=== PATIENT | male | born 1945 | race Caucasian/White ===

== ENCOUNTER 2016-10-17 10:10 | Emergency (ER) | payer MEDICARE, OTHER ==
[2016-10-17 10:23] VITALS: BP 169/86
--- NOTE | 2016-10-17 10:54 | EDM.PDOC ---
ED HPI Trauma - General Chief Complaint: Lower Extremity Injury/Pain Stated Complaint: POSS INFECTION L LEG Time Seen by Provider: 10/17/16 10:40 Source: Reports: Patient History Limitations: Reports: No limitations - History of Present Illness INITIAL COMMENTS - FREE TEXT/NARRATIVE: 71-year-old male with Type 2 diabetes mellitus --controlled with Metformin- presents to the ED with a swollen painful red left second toe. He's had problems with this toe for the last 6 weeks or so. Has seen podiatry and had debridement of the toe( plantar surface tip ulcer) about 3 weeks ago. The toe started to become more red and swollen over the last 3 days. He has no systemic signs of illness such as fever chills nausea vomiting. 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 Between that and the diabetes this left him with the chronic painful condition of the great toe and left second toe where at times it feels like a hemorrhage being commented on the toe. Pain is neurogenic in origin. Usually easily controlled by Tramadol as needed. At present he is having only mild discomfort in the toe but the entire dorsal toe was red and swollen. Symptom Onset Date: 10/15/16 Occurred Where: other (No injury known. Developed a ulcer on the tip of the plantar surface of the toe greater than 6 weeks ago which required debridement by concrete float maker. This area is a healing in fairly well.) Method of Injury: other (Ulcer to the plantar surface of the toe because he can' t feel anything until postop.) Severity: moderate Pain/Injury Location: Reports: lower extremity, left (Left second toe.) Associated Symptoms: Reports: no other symptoms, trouble walking. Denies: abdominal pain, chest pain, confusion, dizziness, lightheadedness, muscle spasms , nausea/vomiting, neck pain, ringing in ears, seizures, slurred speech, vision changes, other Allergies/ADRs: Allergies No Known Allergies Allergy (Verified 08/02/16 15:33) Home Medications: Ambulatory Orders Aspirin 1 tab PO DAILY 08/02/16 [Confirmed 10/17/16] Losartan [Cozaar] 100 mg PO BID 08/02/16 [Confirmed 10/17/16] Doxycycline [Vibramycin] 100 mg PO Q12HR #30 cap 10/17/16 Levothyroxine [Synthroid] 50 mcg PO DAILY 10/17/16 [Confirmed 10/17/16] Meloxicam 15 mg PO DAILY 10/17/16 [Confirmed 10/17/16] atorvaSTATin [Lipitor] 10 mg PO DAILY 10/17/16 [Confirmed 10/17/16] metFORMIN HCl [Glucophage XR] 750 mg PO DAILY 10/17/16 [Confirmed 10/17/16] traMADol [Ultram] 50 mg PO Q6H #30 tablet 10/17/16 Past Medical History HEENT History: Reports: Other (see below) Other HEENT History: wears glasses Cardiovascular History: Reports: Bypass (Veins were harvested from the greater saphenous vein left leg which left him with common peroneal nerve injury.), High cholesterol, Hypertension Respiratory History: Reports: Other (see below) Other Respiratory History: hematoma Neurological History: Reports: Neuropathy, diabetic Endocrine/Metabolic History: Reports: Diabetes, type II, Hypothyroidism - Past Surgical History Musculoskeletal Surgical History: Reports: Other (see below) Other Musculoskeletal Surgeries/Procedures:: bunion surgery, concrete float maker with left toe. Social & Family History - Family History Family Medical History: Noncontributory - Tobacco Use Smoking Status *Q: Unknown Ever Smoked - Caffeine Use Caffeine Use: Reports: None - Recreational Drug Use Recreational Drug Use: No - Living Situation & Occupation Occupation: employed Review of Systems - Review of Systems Review Of Systems: See Below Constitutional: Denies: chills, diaphoresis, fever, weakness, other Eyes: Reports: no symptoms Ears: Reports: no symptoms Nose: Reports: no symptoms Mouth/Throat: Reports: no symptoms Respiratory: Reports: No Symptoms Cardiovascular: Reports: edema (His edema left leg at times. Usually running around the top of the sock.), lightheadedness. Denies: chest pain GI/Abdominal: Reports: No symptoms Musculoskeletal: Reports: leg pain (Usually involving the left second and first toes. Neuropathic pain syndrome on intermittent basis. It's daily however.) Skin: Reports: erythema (Left second toe) Neurological: Reports: Difficulty Walking, Other Psychiatric: Reports: no symptoms Trauma Exam - Physical Exam Exam: See Below Exam Limited By: No limitations General Appearance: Reports: alert, WD/WN, anxious, mild distress Extremities: Reports: other (Examination was limited essentially to the left leg and foot. He has evidence of greater saphenous vein harvesting for bypass surgery in the left leg. He has slight erythema on the dorsal anterior ankle and distal tib-fib is not warm to palpation. He has trace edema of the ankle. Left second toe is severely erythematous and warm to palpation on the dorsal aspect. The volar aspect it does not show any signs of infection. No open wounds at this time. It appears to be healing wound on the medial aspect of the third toe over the proximal phalanx.). Denies: normal range of motion (He has limited movement in the second toe. Good movement of the great toe and third toe.) Neurologic: Reports: sensory deficit (Has no sensation in his left second toe.) Skin: Reports: Other (Erythema and swelling of the left second toe IE cellulitis.) - [place] Coma Score Best Eye Response (Arsh): (4) open spontaneously Best Verbal Response (Arsh): (5) oriented Best Motor Response (Arsh): (6) obeys commands Arsh Total: 15 Course - Vital Signs Last Recorded V/S: Last Vital Signs Temp 36.9 C 10/17/16 10:16 Pulse 65 10/17/16 10:16 Resp 18 10/17/16 10:16 BP 169/86 H 10/17/16 10:16 Pulse Ox 97 10/17/16 10:16 - Orders/Labs/Meds Orders: Active Orders 24 hr Category Date Time Status Peripheral IV Care [RC] . DIRECTED Care 10/17/16 10:58 Active Peripheral IV Insertion Adult [OM.PC] Stat Oth 10/17/16 10:57 Ordered Labs: Laboratory Tests 10/17/16 10/17/16 10/17/16 Range/Units 11:15 11:15 11:15 WBC 9.01 (4.23-9.07) K/mm3 RBC 4.43 L (4.63-6.08) M/mm3 Hgb 12.9 L (13.7-17.5) gm/L Hct 37.4 L (40.1-51.0) % MCV 84.4 (79.0-92.2) fl MCH 29.1 (25.7-32.2) pg MCHC 34.5 (32.2-35.5) g/dl RDW Std Deviation 37.8 (35.1-43.9) fL Plt Count 248 (163-337) K/mm3 MPV 11.7 (9.4-12.3) fl Neutrophils % (Manual) 74 H (40-60) % Band Neutrophils % 7 (0-10) % Lymphocytes % (Manual) 13 L (20-40) % Atypical Lymphs % 0 % Monocytes % (Manual) 3 (2-10) % Eosinophils % (Manual) 2 (0.8-7.0) % Basophils % (Manual) 1 (0.2-1.2) Platelet Estimate Adequate RBC Morph Comment Normal ESR 40 H (0-15) mm/hr C-Reactive Protein 4.4 H* (<1.0) mg/dL Meds: Medications Discontinued Medications Generic Name Dose Route Start Last Admin Trade Name Freq PRN Reason Stop Dose Admin Ceftriaxone Sodium 2 gm 10/17/16 11:00 10/17/16 11:05 Rocephin IVPUSH Not Given Q24H [place] Ceftriaxone Sodium 2 gm/ 100 mls @ 200 mls/hr 10/17/16 11:05 10/17/16 11:20 Sodium Chloride IV 10/17/16 11:34 200 mls/hr ONETIME ONE Administration Sodium Chloride 10 ml 10/17/16 10:57 10/17/16 11:15 Saline Flush FLUSH 10 ml ASDIRECTED PRN Administration Keep Vein Open - Radiology Interpretation Free Text/Narrative:: 71-year-old male presents the ED due to the swelling erythematous left second toe. Patient is a type II diabetic and controlled with metformin. He had injury to the common peroneal nerve left leg when his greater saphenous vein was harvested for bypass surgery. 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 He gets pains which is primarily described as sudden and almost like a hammer hit you in the toe. He developed a ulcer on the plantar tip of the second toe about 6 weeks ago which was debrided by podiatry. It is healing. However he has developed a secondary infection on the dorsal aspect of the toe without an obvious source for this. The toe is insensate. Plan sedimentation rate CRP and CBC to be done. We'll give 2 g of Rocephin intravenously while in the ED. X-ray of the toe to be done to see if there is any evidence of osteomyelitis. - Re-Assessments/Exams Free Text/Narrative Re-Assessment/Exam: 10/17/16 12:13: Patient has completed his 2 g of Rocephin intravenously. We'll discharge him on doxycycline 100 mg twice a day for the next 14 days. Dissection take 2 tablets today in case there is MRSA infection in the toe. X- ray of the toe did not reveal any signs of osteomyelitis. Lab work revealed a elevated CRP at 4.4 but a normal white count and differential. I also wrote a prescription for tramadol 50 mg tablets x30 one tablet every 6-8 hours as needed for pain relief. Departure - Departure Time of Disposition: 12:26 Disposition: Home, Self-Care 01 Condition: fair Clinical Impression: Cellulitis of toe, left, Neuropathic pain of left foot Prescriptions: Doxycycline [Vibramycin] 100 mg PO Q12HR #30 cap traMADol [Ultram] 50 mg PO Q6H #30 tablet Instructions: Cellulitis, Adult, [id number] Referrals: She Kim DO [Primary Care Provider] - Forms: ED Department Discharge Additional Instructions: Evaluation in the emergency department today in regards to development of infection under the skin of the left second toe. Left second toe does not have appropriate sensation since nerve injury to the foot occurred from harvesting of the greater saphenous vein for heart bypass surgery. Recent ulceration formed on the plantar surface at the tip that has started to heal quite well. Dorsal aspect of the toe was obviously very reddened and inflamed which we call cellulitis. First dose of antibiotics were provided in the ED with Rocephin 2 g administered. Treatment as an outpatient will be doxycycline 2 tablets initially then one tablet twice daily for the next 14 days to clear up infection. She did note a marked improvement in the redness and swelling over the next 72 hours. He would need to return to the emergency room sooner if the redness seems to be traveling up her foot and into your upper leg. Other reason to return to the ED with did with the development of fever chills nausea or vomiting. Suggest followup with her concrete float maker her regular doctor in 7 days time. Who I also wrote a prescription for tramadol tablets 50 mg to be used on a as needed basis every 6-8 hours for pain relief. Of note x-ray of the left second toe did not reveal any signs of osteomyelitis. - My Orders Last 24 Hours: My Active Orders 10/17/16 10:57 Peripheral IV Insertion Adult [OM.PC] Stat 10/17/16 10:58 Peripheral IV Care [RC] . DIRECTED - Assessment/Plan Last 24 Hours: My Active Orders 10/17/16 10:57 Peripheral IV Insertion Adult [OM.PC] Stat 10/17/16 10:58 Peripheral IV Care [RC] . DIRECTED
[2016-10-17] MEDS ORDERED: Sodium Chloride 0.9% 10 ML Syringe FLUSH PRN (10:57)
[2016-10-17] MEDS ORDERED: cefTRIAXone 2 GM Vial IVPUSH SCH (11:00)
[2016-10-17] MEDS ORDERED: cefTRIAXone 2 GM in Sodium Chloride 0.9% 100 ML IV ONE (11:05)
--- NOTE | 2016-10-17 11:49 | CR ---
Left toe: Four views of the left toes were obtained. Areas of cortical thickening are seen within the second digit which are felt to be old. Vascular calcification is seen. No acute fracture is noted. On the lateral view there is destruction being seen within the distal aspect of the distal phalanx felt compatible with osteomyelitis. Impression: 1. Destructive change within the distal aspect of the distal phalanx of the second digit likely representing osteomyelitis. 2. Other incidental findings. Diagnostic code #5
== END 2016-10-17 12:35 | disposition home or self-care (01) ==
LOC: JD.ED 10:10
DX: L03.032 Cellulitis of left toe (principal); E11.40 Type 2 diabetes mellitus with diabetic neuropathy, unspecified; E78.00 Pure hypercholesterolemia, unspecified; I10 Essential (primary) hypertension; E03.9 Hypothyroidism, unspecified; Z79.82 Long term (current) use of aspirin; Z79.84 Long term (current) use of oral hypoglycemic drugs; Z79.899 Other long term (current) drug therapy
CPT/HCPCS: 36415; 73660; 85025; 85652; 86140; 96365; 99284; J0696; J7030; J7050; 99283-25

== ENCOUNTER 2016-10-19 13:59 | Inpatient (IN) | payer MEDICARE, SELFPAY ==
--- NOTE | 2016-10-19 16:08 | EDM.PDOC ---
ED HPI Trauma - General Chief Complaint: Lower Extremity Injury/Pain Stated Complaint: LT FOOT SWOLLEN AND RED Time Seen by Provider: 10/19/16 14:08 Source: Reports: Patient History Limitations: Reports: No limitations - History of Present Illness INITIAL COMMENTS - FREE TEXT/NARRATIVE: The patient presents with pain and swelling to his left 2nd toe and left foot. The patient has had trouble with this toe for about 6 weeks. He saw podiatry and had debridement and that did not help. The toe is more painful and swollen over the past few days. He was seen here 2 days ago and he was given rocephin IV and put on doxycycline. He was also given tramadol for pain. He also has erythema in his lower leg. The erythema in his toe, foot and leg has not gotten any better and he has some edema now. He denies fever, chills, nausea or vomiting. Occurred When: other (Weeks ago) Occurred Where: home Method of Injury: other (He said it started out as a blister) Severity: moderate Pain/Injury Location: Reports: lower extremity, left (2nd great toe, foot and lower leg) Consciousness: Reports: no loss of consciousness Associated Symptoms: Reports: no other symptoms Allergies/ADRs: Allergies No Known Allergies Allergy (Verified 10/19/16 14:08) Home Medications: Ambulatory Orders Aspirin 1 tab PO DAILY 08/02/16 [Confirmed 10/17/16] Losartan [Cozaar] 100 mg PO BID 08/02/16 [Confirmed 10/17/16] Doxycycline [Vibramycin] 100 mg PO Q12HR #30 cap 10/17/16 Levothyroxine [Synthroid] 50 mcg PO DAILY 10/17/16 [Confirmed 10/17/16] Meloxicam 15 mg PO DAILY 10/17/16 [Confirmed 10/17/16] atorvaSTATin [Lipitor] 10 mg PO DAILY 10/17/16 [Confirmed 10/17/16] metFORMIN HCl [Glucophage XR] 750 mg PO DAILY 10/17/16 [Confirmed 10/17/16] traMADol [Ultram] 50 mg PO Q6H #30 tablet 10/17/16 Past Medical History HEENT History: Reports: Other (see below) Other HEENT History: wears glasses Cardiovascular History: Reports: Bypass, High cholesterol, Hypertension Respiratory History: Reports: Other (see below) Other Respiratory History: hematoma Neurological History: Reports: Neuropathy, diabetic Endocrine/Metabolic History: Reports: Diabetes, type II, Hypothyroidism - Past Surgical History Musculoskeletal Surgical History: Reports: Other (see below) Other Musculoskeletal Surgeries/Procedures:: bunion surgery, 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 Social & Family History - Family History Family Medical History: Noncontributory - Tobacco Use Smoking Status *Q: Unknown Ever Smoked - Caffeine Use Caffeine Use: Reports: None - Recreational Drug Use Recreational Drug Use: No - Living Situation & Occupation Occupation: employed Review of Systems - Review of Systems Review Of Systems: See Below Constitutional: Reports: no symptoms Eyes: Reports: no symptoms Ears: Reports: no symptoms Nose: Reports: no symptoms Mouth/Throat: Reports: no symptoms Respiratory: Reports: No Symptoms Cardiovascular: Reports: no symptoms GI/Abdominal: Reports: No symptoms Genitourinary: Reports: no symptoms Musculoskeletal: Reports: other (Left 2nd toe, left foot and left distal leg pain) Trauma Exam - Physical Exam Exam: See Below Exam Limited By: No limitations General Appearance: Reports: alert, no apparent distress Head: Reports: atraumatic, normocephalic Ears: Reports: normal external exam Nose: Reports: normal inspection Respiratory Exam: Reports: no respiratory distress Extremities: Reports: other (Moderate edema and erythema of the left 2nd toe. He has numbness to that toe. He has erythema to the left foot and left lower leg.) Course - Vital Signs Last Recorded V/S: Last Vital Signs Temp 97.4 F 10/19/16 14:08 Pulse 59 L 10/19/16 14:08 Resp BP 156/79 H 10/19/16 14:08 Pulse Ox 99 10/19/16 14:08 - Orders/Labs/Meds Orders: Active Orders 24 hr Category Date Time Status Patient Status [ADT] Routine ADT 10/19/16 16:34 Active Blood Glucose Check, Bedside [RC] QIDACANDBED Care 10/19/16 16:39 Active Intake and Output [RC] QSHIFT Care 10/19/16 16:31 Active Notify Provider Consults [RC] ASDIRECTED Care 10/19/16 16:37 Active Oxygen Therapy [RC] PRN Care 10/19/16 16:31 Active Peripheral IV Care [RC] . DIRECTED Care 10/19/16 16:33 Active RT Aerosol Therapy [RC] ASDIRECTED Care 10/19/16 16:36 Active Up With Assistance [RC] ASDIRECTED Care 10/19/16 16:31 Active Up ad Teresa [RC] ASDIRECTED Care 10/19/16 16:31 Active VTE/DVT Education [RC] PER UNIT ROUTINE Care 10/19/16 16:31 Active Vital Signs [RC] Q4H Care 10/19/16 16:31 Active Consult to Case Management [CONS] Routine Cons 10/19/16 16:36 Active Consult to Diabetic Nurse Specialist [CONS] Routine Cons 10/19/16 16:36 Active Consult to Transport Medic [CONS] Routine Cons 10/19/16 16:36 Active Consult to Physician [CONS] Routine Cons 10/19/16 16:36 Active Consult to Coating Technician [CONS] Routine Cons 10/19/16 16:36 Active Consult to Spiritual Care [CONS] Routine Cons 10/19/16 16:36 Active OT Evaluation and Treatment [CONS] Routine Cons 10/19/16 16:36 Active PT Evaluation and Treatment [CONS] Routine Cons 10/19/16 16:36 Active Consistent Carbohydrate Diet [DIET] Diet 10/19/16 Dinner Active Foot wo Cont Lt [MR] Routine Exams 10/20/16 07:00 Ordered A1C [GLYCOSYLATED HEMOGLOBIN,HGBA1C] [CHEM] Stat Lab 10/19/16 16:46 Ordered BASIC METABOLIC PANEL,BMP [CHEM] AM Lab 10/20/16 05:11 Ordered BASIC METABOLIC PANEL,BMP [CHEM] AM Lab 10/21/16 05:11 Ordered BASIC METABOLIC PANEL,BMP [CHEM] AM Lab 10/22/16 05:11 Ordered BASIC METABOLIC PANEL,BMP [CHEM] AM Lab 10/23/16 05:11 Ordered C-REACTIVE PROTEIN [CHEM] AM Lab 10/20/16 05:11 Ordered C-REACTIVE PROTEIN [CHEM] AM Lab 10/21/16 05:11 Ordered C-REACTIVE PROTEIN [CHEM] AM Lab 10/22/16 05:11 Ordered C-REACTIVE PROTEIN [CHEM] AM Lab 10/23/16 05:11 Ordered C-REACTIVE PROTEIN [CHEM] Routine Lab 10/19/16 16:36 Ordered CBC WITH AUTO DIFF [HEME] AM Lab 10/20/16 05:11 Ordered CBC WITH AUTO DIFF [HEME] AM Lab 10/21/16 05:11 Ordered CBC WITH AUTO DIFF [HEME] AM Lab 10/22/16 05:11 Ordered CBC WITH AUTO DIFF [HEME] AM Lab 10/23/16 05:11 Ordered CBC WITH AUTO DIFF [HEME] Stat Lab 10/19/16 16:33 Ordered COMPREHENSIVE METABOLIC PN,CMP [CHEM] Stat Lab 10/19/16 16:33 Ordered CRP [C-REACTIVE PROTEIN] [CHEM] Stat Lab 10/19/16 16:33 Ordered CULTURE MRSA [RM] Stat Lab 10/19/16 16:36 Uncollected CULTURE WOUND [RM] Stat Lab 10/19/16 16:47 Uncollected LIPID PANEL [CHEM] AM Lab 10/20/16 05:11 Ordered MAGNESIUM [CHEM] AM Lab 10/20/16 05:11 Ordered MAGNESIUM [CHEM] AM Lab 10/21/16 05:11 Ordered MAGNESIUM [CHEM] AM Lab 10/22/16 05:11 Ordered MAGNESIUM [CHEM] AM Lab 10/23/16 05:11 Ordered SEDIMENTATION RATE AUTO [HEME] Stat Lab 10/19/16 16:34 Ordered TSH [CHEM] AM Lab 10/20/16 05:11 Ordered Acetaminophen [Tylenol] Med 10/19/16 16:31 Active 650 mg PO Q4H PRN Albuterol [Proventil Neb Soln] Med 10/19/16 16:31 Active 2.5 mg NEB Q2H PRN Aspirin Med 10/20/16 09:00 Active 81 mg PO DAILY Bisacodyl [Dulcolax] Med 10/19/16 16:31 Ordered 5 mg PO DAILY PRN Dextrose 50% in Water Med 10/19/16 16:39 Active 50 ml IVPUSH ASDIRECTED PRN Docusate Sodium [Colace] Med 10/19/16 16:31 Active 100 mg PO BID PRN Docusate Sodium/Sennosides [Senna Plus] Med 10/19/16 16:31 Ordered 1 tab PO BID PRN HYDROmorphone [Dilaudid] Med 10/19/16 16:31 Active 1 mg IVPUSH Q4H PRN Heparin Sodium Med 10/19/16 16:45 Ordered 5,000 units SUBCUT Q8H Insulin Aspart [NovoLOG] Med 10/19/16 17:00 Active See Protocol SUBCUT QIDACANDBED Levothyroxine [Synthroid] Med 10/20/16 09:00 Ordered 50 mcg PO DAILY Losartan [Cozaar] Med 10/19/16 21:00 Ordered 100 mg PO BID Magnesium Rep Pharmacy to Dose [Pharmacy to Dose - Med 10/19/16 16:45 Ordered Magnesium Replacement] 1 dose .XX ASDIRECTED Metoprolol Tartrate [Lopressor] Med 10/19/16 16:38 Active 5 mg IVPUSH Q4H PRN Ondansetron [Zofran] Med 10/19/16 16:31 Active 4 mg IV Q6H PRN Polyethylene Glycol 3350 [MiraLAX] Med 10/19/16 16:31 Active 17 gm PO DAILY PRN Potassium Rep Pharmacy to Dose [Pharmacy to Dose - Med 10/19/16 16:45 Ordered Potassium Replacement] 1 dose .XX ASDIRECTED Promethazine [Phenergan] 12.5 mg Med 10/19/16 16:31 Active Sodium Chloride 0.9% [Normal Saline] 50 ml IV Q6H Saccharomyces Boulardii [Florastor] Med 10/19/16 21:00 Ordered 250 mg PO BID Sodium Chloride 0.9% [Normal Saline] 1,000 ml Med 10/19/16 17:00 Active IV ASDIRECTED Sodium Chloride 0.9% [Saline Flush] Med 10/19/16 16:33 Active 10 ml FLUSH ASDIRECTED PRN Temazepam [Restoril] Med 10/19/16 16:31 Ordered 15 mg PO BEDTIME PRN Vancomycin 1 gm Med 10/19/16 21:00 Ordered Vancomycin 500 mg Sodium Chloride 0.9% [Normal Saline] 500 ml IV Q12HR Vancomycin Pharmacy to Dose [Pharmacy to Dose - Med 10/19/16 16:45 Pending Vancomycin] 1 dose .XX ASDIRECTED Vancomycin [Vancocin] 3 gm Med 10/19/16 16:35 Active Sodium Chloride 0.9% [Normal Saline] 250 ml IV ONETIME atorvaSTATin Med 10/20/16 09:00 Ordered 10 mg PO DAILY cefTRIAXone [Rocephin] 1 gm Med 10/20/16 09:00 Ordered Sodium Chloride 0.9% [Normal Saline] 100 ml IV Q24H hydrALAZINE [Apresoline] Med 10/19/16 16:38 Active 20 mg IVPUSH Q4H PRN metFORMIN HCl Med 10/20/16 09:00 Ordered 750 mg PO DAILY oxyCODONE Med 10/19/16 16:31 Ordered 5 mg PO Q4H PRN Peripheral IV Insertion Adult [OM.PC] Stat Oth 10/19/16 16:33 Ordered Resuscitation Status Routine Resus Stat 10/19/16 16:31 Ordered Medication Orders Acetaminophen (Tylenol) 650 mg PO Q4H PRN PRN Reason: Pain (Mild 1-3)/fever Albuterol (Proventil Neb Soln) 2.5 mg NEB Q2H PRN PRN Reason: Shortness Of Breath/wheezing Aspirin (Aspirin) 81 mg PO DAILY [place] Bisacodyl (Dulcolax) 5 mg PO DAILY PRN PRN Reason: Constipation Dextrose/Water (Dextrose 50% In Water) 50 ml IVPUSH ASDIRECTED PRN PRN Reason: Hypoglycemia Docusate Sodium (Colace) 100 mg PO BID PRN PRN Reason: Constipation Heparin Sodium (Porcine) (Heparin Sodium) 5,000 units SUBCUT Q8H [place] Hydralazine HCl (Apresoline) 20 mg IVPUSH Q4H PRN PRN Reason: Hypertension Hydromorphone HCl (Dilaudid) 1 mg IVPUSH Q4H PRN PRN Reason: Pain (severe 7-10) Vancomycin HCl 3 gm/ Sodium (Chloride) 250 mls @ 250 mls/hr IV ONETIME ONE Stop: 10/19/16 17:34 Promethazine HCl 12.5 mg/ (Sodium Chloride) 50.5 mls @ 100 mls/hr IV Q6H PRN PRN Reason: Nausea/Vomiting Sodium Chloride (Normal Saline) 1,000 mls @ 75 mls/hr IV ASDIRECTED [place] Ceftriaxone Sodium 1 gm/ (Sodium Chloride) 100 mls @ 200 mls/hr IV Q24H [place] Vancomycin HCl 1 gm/Vancomycin HCl 500 mg/ Sodium Chloride 500 mls @ 125 mls/ hr IV Q12HR [place] Insulin Aspart (Novolog) 0 unit SUBCUT QIDACANDBED [place] PRN Reason: Protocol Levothyroxine Sodium (Synthroid) 50 mcg PO DAILY [place] Losartan Potassium (Cozaar) 100 mg PO BID [facility] Magnesium Sulfate (Pharmacy To Dose - Magnesium Replacement) 1 dose .XX ASDIRECTED [place] Metoprolol Tartrate (Lopressor) 5 mg IVPUSH Q4H PRN PRN Reason: Tachycardia Non-Formulary Medication (Atorvastatin) 10 mg PO DAILY [place] Non-Formulary Medication (Metformin Hcl) 750 mg PO DAILY [facility] Ondansetron HCl (Zofran) 4 mg IV Q6H PRN PRN Reason: Nausea/Vomiting Oxycodone HCl (Oxycodone) 5 mg PO Q4H PRN PRN Reason: Pain (moderate 4-6) Polyethylene Glycol (Miralax) 17 gm PO DAILY PRN PRN Reason: Constipation Potassium Chloride (Pharmacy To Dose - Potassium Replacement) 1 dose .XX ASDIRECTED [facility] Saccharomyces Boulardii (Florastor) 250 mg PO BID [facility] Senna/Docusate Sodium (Senna Plus) 1 tab PO BID PRN PRN Reason: Constipation Sodium Chloride (Saline Flush) 10 ml FLUSH ASDIRECTED PRN PRN Reason: Keep Vein Open Temazepam (Restoril) 15 mg PO BEDTIME PRN PRN Reason: Sleep Vancomycin HCl (Pharmacy To Dose - Vancomycin) 1 dose .XX ASDIRECTED [facility] Meds: Medications Generic Name Dose Route Start Last Admin Trade Name Freq PRN Reason Stop Dose Admin Acetaminophen 650 mg 10/19/16 16:31 Tylenol PO Q4H PRN Pain (Mild 1-3)/fever Albuterol 2.5 mg 10/19/16 16:31 Proventil Neb Soln NEB Q2H PRN Shortness Of Breath/wheezing Aspirin 81 mg 10/20/16 09:00 Aspirin PO DAILY [facility] Bisacodyl 5 mg 10/19/16 16:31 Dulcolax PO DAILY PRN Constipation Dextrose/Water 50 ml 10/19/16 16:39 Dextrose 50% In Water IVPUSH ASDIRECTED PRN Hypoglycemia Docusate Sodium 100 mg 10/19/16 16:31 Colace PO BID PRN Constipation Heparin Sodium (Porcine) 5,000 units 10/19/16 16:45 Heparin Sodium SUBCUT Q8H [facility] Hydralazine HCl 20 mg 10/19/16 16:38 Apresoline IVPUSH Q4H PRN Hypertension Hydromorphone HCl 1 mg 10/19/16 16:31 Dilaudid IVPUSH Q4H PRN Pain (severe 7-10) Vancomycin HCl 3 gm/ Sodium 250 mls @ 250 mls/hr 10/19/16 16:35 Chloride IV 10/19/16 17:34 ONETIME ONE Promethazine HCl 12.5 mg/ 50.5 mls @ 100 mls/hr 10/19/16 16:31 Sodium Chloride IV Q6H PRN Nausea/Vomiting Sodium Chloride 1,000 mls @ 75 mls/hr 10/19/16 17:00 Normal Saline IV ASDIRECTED [facility] Ceftriaxone Sodium 1 gm/ 100 mls @ 200 mls/hr 10/20/16 09:00 Sodium Chloride IV Q24H [facility] Vancomycin HCl 1 gm/ 500 mls @ 125 mls/hr 10/19/16 21:00 Vancomycin HCl 500 mg/ Sodium IV Chloride Q12HR [facility] Insulin Aspart 0 unit 10/19/16 17:00 Novolog SUBCUT QIDACANDBED [facility] Protocol Levothyroxine Sodium 50 mcg 10/20/16 09:00 Synthroid PO DAILY [facility] Losartan Potassium 100 mg 10/19/16 21:00 Cozaar PO BID [facility] Magnesium Sulfate 1 dose 10/19/16 16:45 Pharmacy To Dose - Magnesium Replacement .XX ASDIRECTED [facility] Metoprolol Tartrate 5 mg 10/19/16 16:38 Lopressor IVPUSH Q4H PRN Tachycardia Non-Formulary Medication 10 mg 10/20/16 09:00 Atorvastatin PO DAILY [facility] Non-Formulary Medication 750 mg 10/20/16 09:00 Metformin Hcl PO DAILY [facility] Ondansetron HCl 4 mg 10/19/16 16:31 Zofran IV Q6H PRN Nausea/Vomiting Oxycodone HCl 5 mg 10/19/16 16:31 Oxycodone PO Q4H PRN Pain (moderate 4-6) Polyethylene Glycol 17 gm 10/19/16 16:31 Miralax PO DAILY PRN Constipation Potassium Chloride 1 dose 10/19/16 16:45 Pharmacy To Dose - Potassium Replacement .XX ASDIRECTED [facility] Saccharomyces Boulardii 250 mg 10/19/16 21:00 Florastor PO BID [facility] Senna/Docusate Sodium 1 tab 10/19/16 16:31 Senna Plus PO BID PRN Constipation Sodium Chloride 10 ml 10/19/16 16:33 Saline Flush FLUSH ASDIRECTED PRN Keep Vein Open Temazepam 15 mg 10/19/16 16:31 Restoril PO BEDTIME PRN Sleep Vancomycin HCl 1 dose 10/19/16 16:45 Pharmacy To Dose - Vancomycin .XX ASDIRECTED [facility] Discontinued Medications Generic Name Dose Route Start Last Admin Trade Name Freq PRN Reason Stop Dose Admin Ceftriaxone Sodium 2 gm/ 100 mls @ 200 mls/hr 10/19/16 16:36 Sodium Chloride IV 10/19/16 17:05 ONETIME ONE Vancomycin HCl 1 gm/ 500 mls @ 125 mls/hr 10/20/16 09:00 Vancomycin HCl 500 mg/ Sodium IV Chloride Q24H [facility] - Re-Assessments/Exams Free Text/Narrative Re-Assessment/Exam: 10/19/16 16:30 I reviewed the labs from the other day and his WBC was normal but his CRP was elevated. The x-ray did show an osteomyolitis to the 2nd toe distal phalynx. I talked to Dr Luna and he agreed to the admission. I will put an IV in and get some labs and start vancomycin 3grams IV and rocephin 2 grams IV. Departure - Departure Time of Disposition: 17:15 Disposition: Admitted As Inpatient 66 Condition: good Clinical Impression: Osteomyelitis of toe of left foot Cellulitis Qualifiers: Site of cellulitis: extremity Site of cellulitis of extremity: lower extremity Laterality: right Qualified Code(s): L03.115 - Cellulitis of right lower limb Referrals: PCP,None [Primary Care Provider] - Forms: ED Department Discharge - My Orders Last 24 Hours: My Active Orders 10/19/16 16:33 Peripheral IV Care [RC] . DIRECTED CBC WITH AUTO DIFF [HEME] Stat COMPREHENSIVE METABOLIC PN,CMP [CHEM] Stat CRP [C-REACTIVE PROTEIN] [CHEM] Stat Sodium Chloride 0.9% [Saline Flush] 10 ml FLUSH ASDIRECTED PRN Peripheral IV Insertion Adult [OM.PC] Stat 10/19/16 16:34 Patient Status [ADT] Routine SEDIMENTATION RATE AUTO [HEME] Stat 10/19/16 16:35 Vancomycin [Vancocin] 3 gm Sodium Chloride 0.9% [Normal Saline] 250 ml IV ONETIME - Assessment/Plan Last 24 Hours: My Active Orders 10/19/16 16:33 Peripheral IV Care [RC] . DIRECTED CBC WITH AUTO DIFF [HEME] Stat COMPREHENSIVE METABOLIC PN,CMP [CHEM] Stat CRP [C-REACTIVE PROTEIN] [CHEM] Stat Sodium Chloride 0.9% [Saline Flush] 10 ml FLUSH ASDIRECTED PRN Peripheral IV Insertion Adult [OM.PC] Stat 10/19/16 16:34 Patient Status [ADT] Routine SEDIMENTATION RATE AUTO [HEME] Stat 10/19/16 16:35 Vancomycin [Vancocin] 3 gm Sodium Chloride 0.9% [Normal Saline] 250 ml IV ONETIME
--- NOTE | 2016-10-19 16:19 | PCM.HP ---
H&P History of Present Illness - General Date of Service: 10/19/16 Admit Problem/Dx: Osteomyelitis Source of Information: Patient, Old records, RN notes reviewed History Limitations: Reports: Physical impairment - History of Present Illness Initial Comments - Free Text/Narative: This is a 71 yo elderly white male with past medical hx/o HTN, HLD, CAD S/p 3 Vessel CABG, Peripheral Neuropathy, and Hypothyroidism who comes in with worsening left 2nd toe infection that has been going on for over 6 weeks now. He was seen on 10/17/2016 in ED and was discharged with oral Doxycycline and Tramadol. He was advised to follow up with Podiatry but he never got around to it. Patient carries a hx/o long standing DM2 on oral anti-hyperlgycemic (15 years now). His most recent A1C was 7.45, 6 months ago according to him. He checks his glucose but not routinely. His average glucose varies from 75 to over 200s. Per patient, he was seen here initially in Jul-August and was referred to see a Dispatch Associate. He did eventually see a tar heater operator in [place], [place]. At that time, he underwent minor debridement of the tip of his left 2nd toe and lateral aspect of his left 4th toe. As of now those affected areas were remained healed. However the dorsal aspect of his left 2nd toe appears to be worsening. His foot XR on 10/17/2016 showed destructive changes within the distal phalanx of the affected toe suggestive of osteomyelitis. His initial labs in ED show a CBC significant for Hgb of 12.7, HCT of 37, Neutrophils of 6.77 and ESR of 70. His chemistry is significant for BUN of 19, BS of 234, A1C 8.50, AST 14 and CRP of 10.4. Patient is being admitted for Osteomyelitis. His code status is full. Left Feet Pain Score (Numeric/FACES): 0 - Related Data Allergies/Adverse Reactions: Allergies Allergy/AdvReac Type Severity Reaction Status Date / Time No Known Allergies Allergy Verified 10/19/16 14:08 Home Medications: Home Meds Aspirin 1 tab PO DAILY 08/02/16 [History] Losartan [Cozaar] 100 mg PO BID 08/02/16 [History] Doxycycline [Vibramycin] 100 mg PO Q12HR #30 cap 10/17/16 [Rx] Levothyroxine [Synthroid] 50 mcg PO DAILY 10/17/16 [History] Meloxicam 15 mg PO DAILY 10/17/16 [History] atorvaSTATin [Lipitor] 10 mg PO DAILY 10/17/16 [History] metFORMIN HCl [Glucophage XR] 750 mg PO DAILY 10/17/16 [History] traMADol [Ultram] 50 mg PO Q6H #30 tablet 10/17/16 [Rx] Past Medical History HEENT History: Reports: Other (see below) Other HEENT History: wears glasses Cardiovascular History: Reports: Bypass, High cholesterol, Hypertension Respiratory History: Reports: Other (see below) Other Respiratory History: hematoma Neurological History: Reports: Neuropathy, diabetic Endocrine/Metabolic History: Reports: Diabetes, type II, Hypothyroidism - Past Surgical History Musculoskeletal Surgical History: Reports: Other (see below) Other Musculoskeletal Surgeries/Procedures:: bunion surgery, 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 Social & Family History - Family History Family Medical History: Noncontributory - Tobacco Use Smoking Status *Q: Unknown Ever Smoked - Caffeine Use Caffeine Use: Reports: None - Recreational Drug Use Recreational Drug Use: No - Living Situation & Occupation Occupation: employed H&P Review of Systems - Review of Systems: Review Of Systems: See Below General: Denies: fever, chills, malaise, weakness, fatigue HEENT: Reports: no symptoms Pulmonary: Denies: Shortness of Breath Cardiovascular: Denies: chest pain Gastrointestinal: Denies: Abdominal pain, Constipation, Diarrhea, Decreased appetite, Nausea, Vomiting Genitourinary: Reports: no symptoms Musculoskeletal: Reports: foot pain Skin: Reports: erythema, wound. Denies: cyanosis, rash Psychiatric: Denies: confusion, anxiety, hallucinations Neurological: Reports: Difficulty Walking, Gait Disturbance. Denies: Confusion , Weakness Hematologic/Lymphatic: Reports: no symptoms Immunologic: Reports: no symptoms Exam - Exam Exam: See Below - Vital Signs Vital Signs: Last Vital Signs Temp 36.3 C 10/19/16 14:08 Pulse 59 L 10/19/16 14:08 Resp BP 156/79 H 10/19/16 14:08 Pulse Ox 99 10/19/16 14:08 Weight: 117.934 kg - Exam General: alert, oriented, cooperative, mild distress HEENT: Conjunctiva clear, EOMI, Hearing intact, Mucosa moist & pink, Nares patent, Posterior pharynx clear, Pupils equal, Pupils reactive Neck: supple, trachea midline, 2+ carotid pulse wo bruit, full range of motion Lungs: Clear to auscultation, Normal respiratory effort Cardiovascular: regular rate, regular rhythm Abdomen: normal bowel sounds, soft. No: organomegaly (Male) Exam: Deferred Rectal (Males) Exam: Deferred Back Exam: normal inspection, decreased range of motion Extremities: normal inspection, normal pulses. No: clubbing, cyanosis, calf tenderness, edema Peripheral Pulses: 2+: dorsalis pedis (L), dorsalis pedis (R) Skin: warm, dry, intact, wound Skin Alteration Location (drawings not to scale): 1 - 2nd Toe: significantly erythematous, warm to touch on dorsal aspect, has no sensation, limited movement. 2nd Toe tip: healing well. 4th toe lateral aspect: healling well. Mild edema on ankle 2 - surgical scar Neuro Extensive - Mental Status: oriented x3, normal cognition, memory intact Neuro Extensive - Motor, Sensory, Reflexes: CN II-XII intact (limited but fairly intact), abnormal gait Psychiatric: alert, normal affect, normal mood - Patient Data Result Diagrams: 10/19/16 17:20 10/19/16 17:20 Imaging Impressions last 24 hrs: Foot XR: Destructive changes within the distal aspect of the distal phalanx of the second digit likely representing osteomyelitis. *Q Meaningful Use (ADM) - VTE *Q VTE Criteria *Q: - Stroke *Q Stroke Criteria *Q: - AMI *Q AMI Criteria *Q: Problem List Initiated/Reviewed/Updated: Yes Assessment/Plan Comment:: Assessment/Plan: Acute: Acute Osteomyelitis - Left 2nd toe Distal phalanx - Risk Factor: DM likely poorly controlled - Wound Cx if lesion if open - PRN Pain Management - MRI in am to assess the extent of the infection - IV Rocephin and Vancomycin for pharmacy to dose - Consult Dr. Muro for further evaluation Hyperglycemia with DM2 - BS on admission is 234 - A1C is 8.5 - ISS and Accucheck AC QID and Bedtime - Diabetic Education - Hold oral agents - Goal < 200 for his wound to heal Chronic: HTN DM2 HLD CAD S/p CABG Peripheral Neuropathy Right Lower Extremity Vascular Insufficiency S/p Saphenous Vein harvest Hypothyroidism Chronic Pain Hx/o Bunionectomy of left toe Plan: Admit to the floor Routine AM Labs Lipid panel and TFT in am Resume Some Home Meds PT/OT eval and wound care Additional orders as above SW/CM for d/c planning Code Status: 1 After my meet and greet with him, I have a sense patient maybe difficult to please +/- medically non-compliant. However is very engaging, pleasant to talk to, and got a lot of sense of humor. He is also intellectually stimulating.
[2016-10-19] MEDS ORDERED: Acetaminophen 325 MG Tab PO PRN (16:31)
[2016-10-19] MEDS ORDERED: Bisacodyl 5 MG Tab PO PRN (16:31)
[2016-10-19] MEDS ORDERED: Polyethylene Glycol 3350 Powder 17 GM Packet PO PRN (16:31)
[2016-10-19] MEDS ORDERED: Docusate Sodium 100 MG Cap PO PRN (16:31)
[2016-10-19] MEDS ORDERED: Promethazine 12.5 MG in Sodium Chloride 0.9% 50 ML IV PRN (16:31)
[2016-10-19] MEDS ORDERED: Albuterol 0.083% 2.5 MG/3 ML Neb Soln NEB PRN (16:31)
[2016-10-19] MEDS ORDERED: Ondansetron 4 MG/2 ML SDV IV PRN (16:31)
[2016-10-19] MEDS ORDERED: oxyCODONE 5 MG Tab PO PRN (16:31)
[2016-10-19] MEDS ORDERED: HYDROmorphone 1 MG/ML Syringe IVPUSH PRN (16:31)
[2016-10-19] MEDS ORDERED: Sodium Chloride 0.9% 10 ML Syringe FLUSH PRN (16:33)
[2016-10-19] MEDS ORDERED: SODIUM CHLORIDE 0.9% IV ONE (16:35)
[2016-10-19] MEDS ORDERED: VANCOMYCIN IV ONE (16:35)
[2016-10-19] MEDS ORDERED: cefTRIAXone 2 GM in Sodium Chloride 0.9% 100 ML IV ONE (16:36)
[2016-10-19] MEDS ORDERED: hydrALAZINE 20 MG/ML SDV IVPUSH PRN (16:38)
[2016-10-19] MEDS ORDERED: Metoprolol Tartrate 5 MG/5 ML SDV IVPUSH PRN (16:38)
[2016-10-19] MEDS ORDERED: 50% Dextrose in Water 50 ML Syringe IVPUSH PRN (16:39)
[2016-10-19] MEDS ORDERED: Sodium Chloride 0.9% 1,000 ML IV SCH (17:00)
[2016-10-19] MEDS ORDERED: Heparin Sodium 5,000 Units/ML Vial SUBCUT SCH (18:00)
[2016-10-19] MEDS ORDERED: Vancomycin 1500 MG in Sodium Chloride 0.9% 500 ML IV SCH ×3 (19:00)
[2016-10-19] MEDS: Insulin Aspart 100 Units/ML 3 ML Pen SUBCUT SCH ×2 (19:20→22:18)
[2016-10-19] MEDS ORDERED: Saccharomyces Boulardii (Probiotic) 250 MG Cap PO SCH (21:00)
[2016-10-19] MEDS ORDERED: Vancomycin 1 GM, Vancomycin 500 MG in Sodium Chloride 0.9% 500 ML IV SCH (21:00)
[2016-10-19] MEDS ORDERED: Simvastatin 10 MG Tab PO SCH (21:00)
[2016-10-19] MEDS ORDERED: Temazepam 15 MG Cap PO PRN (21:00)
[2016-10-19] MEDS ORDERED: Bisacodyl 10 MG Supp RECTAL PRN (22:37)
[2016-10-19] MEDS ORDERED: traMADol 50 MG Tab PO PRN (22:59)
[2016-10-19 23:56] VITALS: BP 155/105
--- NOTE | 2016-10-20 00:18 | PCM.DCSUM1 ---
Discharge Summary - Hospital Course Brief History: This is a 71 yo elderly white male with past medical hx/o HTN, HLD, CAD S/p 3 Vessel CABG, Peripheral Neuropathy, and Hypothyroidism who comes in with worsening left 2nd toe infection that has been going on for over 6 weeks now. He was seen on 10/17/2016 in ED and was discharged with oral Doxycycline and Tramadol. He was advised to follow up with Podiatry but he never got around to it. His foot XR on 10/17/2016 showed destructive changes within the distal phalanx of the affected toe suggestive of osteomyelitis. Patient was admitted for further management of his osteomyelitis. - Discharge Data Discharge Date: 10/20/16 Discharge Disposition: Against Medical Advice 07 Condition: Undetermined - Discharge Diagnosis/Problem(s) (1) Osteomyelitis of toe of left foot SNOMED Code(s): 47385094 ICD Code: M86.9 - OSTEOMYELITIS, UNSPECIFIED Status: Acute - Patient Summary/Data Operative Procedure(s) Performed: None Complications: None Consults: Consultations 10/19/16 16:36 Consult to Case Management [CONS] Routine Consult to Diabetic Nurse Specialist [CONS] Routine Consult to Mechanics Handyman [CONS] Routine Consult to Physician [CONS] Routine Consult to Instructional Paraprofessional [CONS] Routine Consult to Spiritual Care [CONS] Routine OT Evaluation and Treatment [CONS] Routine PT Evaluation and Treatment [CONS] Routine Hospital Course: Unable to see and examine him. Patient left AMA at 2310 last night. - Patient Instructions Other/Special Instructions: - Patient left AMA - Discharge Plan Home Medications: Home Meds Aspirin 81 mg PO DAILY 08/02/16 [History] Losartan [Cozaar] 100 mg PO BID 08/02/16 [History] Doxycycline [Vibramycin] 100 mg PO Q12HR #30 cap 10/17/16 [Rx] Levothyroxine [Synthroid] 50 mcg PO ACBREAKFAST 10/17/16 [History] Meloxicam 15 mg PO DAILY 10/17/16 [History] metFORMIN HCl [Glucophage XR] 750 mg PO DAILY 10/17/16 [History] traMADol [Ultram] 50 mg PO Q6H #30 tablet 10/17/16 [Rx] Referrals: PCP,None [Primary Care Provider] - - Discharge Summary/Plan Comment DC Time >30 min.: No Discharge Summary/Plan Comment: Patient left AMA - General Info Date of Service: 10/20/16 Admission Dx/Problem (Free Text: Osteomyelitis Subjective Update: Follow Up - Review of Systems Systems Review Comment: Patient left AMA - Patient Data Vitals - Most Recent: Last Vital Signs Temp 36.7 C 10/19/16 20:37 Pulse 59 L 10/19/16 20:37 Resp 18 10/19/16 20:37 BP 155/105 H 10/19/16 20:37 Pulse Ox 97 10/19/16 20:37 Weight - Most Recent: 117.934 kg Lab Results - Last 24 hrs: Laboratory Results - last 24 hr 10/19/16 10/19/16 10/19/16 Range/Units 17:20 17:20 17:20 WBC 8.68 (4.23-9.07) K/mm3 RBC 4.37 L (4.63-6.08) M/mm3 Hgb 12.7 L (13.7-17.5) gm/L Hct 37.0 L (40.1-51.0) % MCV 84.7 (79.0-92.2) fl MCH 29.1 (25.7-32.2) pg MCHC 34.3 (32.2-35.5) g/dl RDW Std Deviation 38.4 (35.1-43.9) fL Plt Count 321 (163-337) K/mm3 MPV 11.6 (9.4-12.3) fl Neut % (Auto) 78.0 H (34.0-67.9) % Lymph % (Auto) 14.2 L (21.8-53.1) % [place] % (Auto) 6.6 (5.3-12.2) % Eos % (Auto) 0.9 (0.8-7.0) Baso % (Auto) 0.2 (0.1-1.2) % Neut # (Auto) 6.77 H (1.78-5.38) K/mm3 Lymph # (Auto) 1.23 L (1.32-3.57) K/mm3 [place] # (Auto) 0.57 (0.30-0.82) K/mm3 Eos # (Auto) 0.08 (0.04-0.54) K/mm3 Baso # (Auto) 0.02 (0.01-0.08) K/mm3 ESR 70 H (0-15) mm/hr Sodium 136 (136-145) mEq/L Potassium 4.3 (3.5-5.1) mEq/L Chloride 101 (98-107) mEq/L Carbon Dioxide 26 (21-32) mEq/L Anion Gap 13.3 (5-15) BUN 19 H (7-18) mg/dL Creatinine 1.2 (0.7-1.3) mg/dL Est Cr Clr Drug Dosing TNP Estimated GFR (MDRD) 60 (>60) mL/min BUN/Creatinine Ratio 15.8 (14-18) Glucose 234 H (83-115) mg/dL POC Glucose (83-110) mg/dL Hemoglobin A1c (4.50-6.20) % Calcium 8.5 (8.5-10.1) mg/dL Total Bilirubin 0.8 (0.2-1.0) mg/dL AST 14 L (15-37) U/L ALT 19 (16-63) U/L Alkaline Phosphatase 91 (46-116) U/L C-Reactive Protein 10.4 H* (<1.0) mg/dL Total Protein 7.7 (6.4-8.2) g/dl Albumin 3.6 (3.4-5.0) g/dl Globulin 4.1 gm/dL Albumin/Globulin Ratio 0.9 L (1-2) 10/19/16 10/19/16 10/19/16 Range/Units 17:20 17:45 22:17 WBC (4.23-9.07) K/mm3 RBC (4.63-6.08) M/mm3 Hgb (13.7-17.5) gm/L Hct (40.1-51.0) % MCV (79.0-92.2) fl MCH (25.7-32.2) pg MCHC (32.2-35.5) g/dl RDW Std Deviation (35.1-43.9) fL Plt Count (163-337) K/mm3 MPV (9.4-12.3) fl Neut % (Auto) (34.0-67.9) % Lymph % (Auto) (21.8-53.1) % [place] % (Auto) (5.3-12.2) % Eos % (Auto) (0.8-7.0) Baso % (Auto) (0.1-1.2) % Neut # (Auto) (1.78-5.38) K/mm3 Lymph # (Auto) (1.32-3.57) K/mm3 [place] # (Auto) (0.30-0.82) K/mm3 Eos # (Auto) (0.04-0.54) K/mm3 Baso # (Auto) (0.01-0.08) K/mm3 ESR (0-15) mm/hr Sodium (136-145) mEq/L Potassium (3.5-5.1) mEq/L Chloride (98-107) mEq/L Carbon Dioxide (21-32) mEq/L Anion Gap (5-15) BUN (7-18) mg/dL Creatinine (0.7-1.3) mg/dL Est Cr Clr Drug Dosing Estimated GFR (MDRD) (>60) mL/min BUN/Creatinine Ratio (14-18) Glucose (83-115) mg/dL POC Glucose 250 H 117 H (83-110) mg/dL Hemoglobin A1c 8.50 H (4.50-6.20) % Calcium (8.5-10.1) mg/dL Total Bilirubin (0.2-1.0) mg/dL AST (15-37) U/L ALT (16-63) U/L Alkaline Phosphatase (46-116) U/L C-Reactive Protein (<1.0) mg/dL Total Protein (6.4-8.2) g/dl Albumin (3.4-5.0) g/dl Globulin gm/dL Albumin/Globulin Ratio (1-2) Med Orders - Current: Current Medications Discontinued Medications Acetaminophen (Tylenol) 650 mg PO Q4H PRN PRN Reason: Pain (Mild 1-3)/fever Albuterol (Proventil Neb Soln) 2.5 mg NEB Q2H PRN PRN Reason: Shortness Of Breath/wheezing Aspirin (Aspirin) 81 mg PO DAILY [facility] Bisacodyl (Dulcolax) 5 mg PO DAILY PRN PRN Reason: Constipation Bisacodyl (Dulcolax) 10 mg RECTAL DAILY PRN PRN Reason: Constipation Dextrose/Water (Dextrose 50% In Water) 50 ml IVPUSH ASDIRECTED PRN PRN Reason: Hypoglycemia Docusate Sodium (Colace) 100 mg PO BID PRN PRN Reason: Constipation Heparin Sodium (Porcine) (Heparin Sodium) 5,000 units SUBCUT Q8H [facility] Last Admin: 10/19/16 19:31 Dose: Not Given Hydralazine HCl (Apresoline) 20 mg IVPUSH Q4H PRN PRN Reason: Hypertension Last Admin: 10/19/16 20:46 Dose: 20 mg Hydromorphone HCl (Dilaudid) 1 mg IVPUSH Q4H PRN PRN Reason: Pain (severe 7-10) Vancomycin HCl 3 gm/ Sodium (Chloride) 250 mls @ 250 mls/hr IV ONETIME ONE Stop: 10/19/16 17:34 Last Admin: 10/19/16 19:53 Dose: Not Given Ceftriaxone Sodium 2 gm/ (Sodium Chloride) 100 mls @ 200 mls/hr IV ONETIME ONE Stop: 10/19/16 17:05 Last Admin: 10/19/16 17:32 Dose: 200 mls/hr Promethazine HCl 12.5 mg/ (Sodium Chloride) 50.5 mls @ 100 mls/hr IV Q6H PRN PRN Reason: Nausea/Vomiting Sodium Chloride (Normal Saline) 1,000 mls @ 75 mls/hr IV ASDIRECTED [facility] Vancomycin HCl 1 gm/Vancomycin HCl 500 mg/ Sodium Chloride 500 mls @ 125 mls/ hr IV Q24H [facility] Ceftriaxone Sodium 1 gm/ (Sodium Chloride) 100 mls @ 200 mls/hr IV Q24H [facility] Vancomycin HCl 1 gm/Vancomycin HCl 500 mg/ Sodium Chloride 500 mls @ 333 mls/ hr IV Q12H [facility] Last Admin: 10/19/16 20:26 Dose: 333 mls/hr Insulin Aspart (Novolog) 0 unit SUBCUT QIDACANDBED [place] PRN Reason: Protocol Last Admin: 10/19/16 22:18 Dose: Not Given Levothyroxine Sodium (Synthroid) 50 mcg PO DAILY [facility] Losartan Potassium (Cozaar) 100 mg PO BID [facility] Magnesium Sulfate (Pharmacy To Dose - Magnesium Replacement) 1 dose .XX ASDIRECTED [facility] Metoprolol Tartrate (Lopressor) 5 mg IVPUSH Q4H PRN PRN Reason: Tachycardia Miscellaneous Information (Remove Patch) 1 ea TRDERM Q24H [facility] Nicotine (Habitrol) 14 mg TRDERM DAILY [facility] Non-Form Metformin Er 750 Mg Tab 750 mg PO DAILY [facility] Ondansetron HCl (Zofran) 4 mg IV Q6H PRN PRN Reason: Nausea/Vomiting Oxycodone HCl (Oxycodone) 5 mg PO Q4H PRN PRN Reason: Pain (moderate 4-6) Last Admin: 10/19/16 22:15 Dose: 5 mg Polyethylene Glycol (Miralax) 17 gm PO DAILY PRN PRN Reason: Constipation Potassium Chloride (Pharmacy To Dose - Potassium Replacement) 1 dose .XX ASDIRECTED [facility] Saccharomyces Boulardii (Florastor) 250 mg PO BID [facility] Last Admin: 10/19/16 20:27 Dose: 250 mg Senna/Docusate Sodium (Senna Plus) 1 tab PO BID PRN PRN Reason: Constipation Simvastatin (Zocor) 10 mg PO BEDTIME [facility] Last Admin: 10/19/16 20:27 Dose: 10 mg Sodium Chloride (Saline Flush) 10 ml FLUSH ASDIRECTED PRN PRN Reason: Keep Vein Open Temazepam (Restoril) 15 mg PO BEDTIME PRN PRN Reason: Sleep Tramadol HCl (Ultram) 25 mg PO Q4H PRN PRN Reason: Pain Vancomycin HCl (Pharmacy To Dose - Vancomycin) 1 dose .XX ASDIRECTED [facility] - Exam Physical Findings Comments:: Unable to examine. Patient left AMA. *Q Meaningful Use (DIS) - VTE *Q VTE Criteria *Q: - Stroke *Q Stroke Criteria *Q: - AMI *Q AMI Criteria *Q:
[2016-10-20] MEDS ORDERED: cefTRIAXone 1 GM in Sodium Chloride 0.9% 100 ML IV SCH (09:00)
[2016-10-20] MEDS ORDERED: Nicotine 14 MG/24 Hr Patch TRDERM SCH (09:00)
[2016-10-20] MEDS ORDERED: [UNRECOGNIZED DRUG - REMARK] PO SCH (09:00)
[2016-10-20] MEDS ORDERED: Levothyroxine 50 MCG Tab PO SCH (09:00)
[2016-10-20] MEDS ORDERED: Vancomycin 1 GM, Vancomycin 500 MG in Sodium Chloride 0.9% 500 ML IV SCH (09:00)
[2016-10-20] MEDS ORDERED: Aspirin 81 MG Tab.Chew PO SCH (09:00)
[2016-10-20] MEDS ORDERED: Losartan 100 MG Tab PO SCH (21:00)
== END 2016-10-19 23:10 | disposition left against medical advice (07) | DRG 540 ==
LOC: JD.ED 13:59 → JD.MS 16:34
PROVIDERS: ADMIT Internal Medicine; ATTEND Internal Medicine
DX: M86.172 Other acute osteomyelitis, left ankle and foot (principal); I25.810 Atherosclerosis of coronary artery bypass graft(s) without angina pectoris; E11.65 Type 2 diabetes mellitus with hyperglycemia; E11.42 Type 2 diabetes mellitus with diabetic polyneuropathy; E78.5 Hyperlipidemia, unspecified; G89.29 Other chronic pain; M86.9 Osteomyelitis, unspecified; L03.115 Cellulitis of right lower limb; I10 Essential (primary) hypertension; E03.9 Hypothyroidism, unspecified; E78.00 Pure hypercholesterolemia, unspecified; Z79.899 Other long term (current) drug therapy; Z79.84 Long term (current) use of oral hypoglycemic drugs; E11.40 Type 2 diabetes mellitus with diabetic neuropathy, unspecified; Z79.82 Long term (current) use of aspirin; Z53.21 Procedure and treatment not carried out due to patient leaving prior to being seen by health care provider
CPT/HCPCS: 36415; 80053; 82962; 83036; 85025; 85652; 86140; 87070; 96374; 99284; 99284-25; A9270-GY; J0360; J0696; J1815-GY; J3370; J7030; J7040